=== PATIENT | male | born 1985 | race American Indian/Alaskan Native ===

== ENCOUNTER 2017-11-16 13:56 | Emergency (ER) | payer SELFPAY ==
[2017-11-16 14:30] VITALS: BP 130/86
[2017-11-16] MEDS ORDERED: BACTRIM DS PO ONE (19:07)
[2017-11-16] MEDS ORDERED: KEFLEX PO ONE (19:07)
[2017-11-16] MEDS ORDERED: NORCO 7.5/325 PO ONE (19:07)
[2017-11-16] MEDS ORDERED: BOOSTRIX IM ONE ×2 (19:49→20:02)
[2017-11-16] MEDS ORDERED: THERMAZENE 50 GRAM TP ONE (20:00)
[2017-11-16] MEDS ORDERED: TENIVAC IM ONE (20:07)
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
== END 2017-11-16 21:15 | disposition home or self-care (01) ==
LOC: ED 13:56
DX: T24.531A Corrosion of first degree of right lower leg, initial encounter (principal); F17.200 Nicotine dependence, unspecified, uncomplicated; T65.91XA Toxic effect of unspecified substance, accidental (unintentional), initial encounter; Y92.89 Other specified places as the place of occurrence of the external cause
CPT/HCPCS: 90471; 90714; 90715